=== PATIENT | female | born 2000 | race African-American/Black ===

== ENCOUNTER 2020-08-02 09:18 | Outpatient (REF) | payer MEDICAID, SELFPAY ==
[2020-08-02 12:16] LABS: SARS COV2 PCR INHOUSE NEGATIVE (Negative)
== END 2020-08-02 09:19 | disposition home or self-care (01) ==
LOC: HO.LAB 09:18
PROVIDERS: Visit Provider Internal Medicine
DX: Z20.822 Contact with and (suspected) exposure to COVID-19 (principal)
CPT/HCPCS: C9803; U0003

== ENCOUNTER 2020-12-05 11:10 | Outpatient (REF) | payer MEDICAID, SELFPAY | END 2020-12-05 11:11 | disposition home or self-care (01) | LOC: HO.LAB 11:10 | PROVIDERS: Visit Provider Internal Medicine | DX: Z20.822 Contact with and (suspected) exposure to COVID-19 (principal) | CPT/HCPCS: C9803; U0003; U0005 ==

== ENCOUNTER 2021-04-02 10:27 | Outpatient (REF) | payer MEDICAID, SELFPAY | END 2021-04-02 10:28 | disposition home or self-care (01) | LOC: HO.LAB 10:27 | PROVIDERS: Visit Provider Internal Medicine | DX: Z20.822 Contact with and (suspected) exposure to COVID-19 (principal) | CPT/HCPCS: C9803; U0003; U0005 ==

== ENCOUNTER 2021-08-06 10:00 | Outpatient (RCR) | payer MEDICAID, SELFPAY | END 2021-09-06 13:09 | disposition home or self-care (01) | LOC: HO.PTCHIC 10:00 | PROVIDERS: PCP Student in an Organized Health Care Education/Training Program; Visit Provider Family Medicine | DX: M54.50 Low back pain, unspecified (principal) | CPT/HCPCS: 97110; 97161 ==

== ENCOUNTER 2023-03-11 11:41 | Outpatient (REF) | payer MEDICAID, SELFPAY ==
[2023-03-11 14:28] LABS: MANUAL DIFF FLAG NO
[2023-03-11 14:36] LABS: Basophils Absolute Auto 0.1 X10*3/uL (0.0-0.2); Basophils Percent Auto 0.6 % (0-2); Eosinophils Absolute Auto 0.3 X10*3/uL (0.0-0.4); Hematocrit 37.4 % (37.0-47.0); Hemoglobin 11.6 g/dl (12.0-16.0); Imm Gran Abs Auto 0.07 X10*3/uL (0.00-0.03); Imm Gran Pct Auto 0.9 % (0.0-0.4); Lymphocytes Absolute Auto 2.2 X10*3/uL (1.2-4.9); Lymphocytes Percent Auto 28.6 % (20-40); Mean Corpuscular Hemoglobin 25.2 pg (27.0-33.0); Mean Corpuscular Volume 81.1 fL (80.0-98.0); Mean Platelet Volume 9.6 fL (9.4-12.3); Monocytes Absolute Auto 0.4 X10*3/uL (0.1-1.2); Monocytes Percent Auto 4.5 % (2-11); Neutrophils Absolute Auto 4.8 x10*3/uL (2.0-8.3); Neutrophils Percent Auto 61.4 % (45-73); Platelet Count 361 X10*3/uL (160-400); Red Blood Count 4.61 X10*6/uL (4.20-5.50); Red Cell Distribution Width 13.3 % (11.0-16.0); White Blood Count 7.8 X10*3/uL (4.8-10.8)
[2023-03-11 15:07] LABS: Alanine Aminotransferase 14 U/L (0-31); Albumin Level 4.3 g/dL (3.5-5.0); Alkaline Phosphatase 53 U/L (39-117); Anion Gap 10 (12-20); Aspartate Amino Transferase 21 U/L (5-31); Bilirubin Direct 0.1 mg/dL (0.0-0.5); Bilirubin Total 0.3 mg/dL (0.0-1.0); Blood Urea Nitrogen 8 mg/dL (9-16); Calcium 9.7 mg/dL (8.4-10.2); Carbon Dioxide 28 mmol/L (22-29); Chloride 105 mmol/L (96-108); Cholesterol 143 mg/dL (<200); Estimated Glomerular Filt Rate > 60; Glucose Random 72 mg/dL (60-115); HDL Cholesterol 52 mg/dL (>40); LDL Cholesterol Calculated 79 mg/dL (<100); Sodium 139 mmol/L (135-145); Triglycerides 61 mg/dL (<150)
[2023-03-11 16:15] LABS: CT PCR NOT DETECTED (Not Detect.); NG PCR NOT DETECTED (Not Detect.)
[2023-03-12 05:06] LABS: ~HepC Num1 0.07 S/CO (0.00-0.79); ~Hepatitis C Antibody Nonreactive (Nonreactive)
[2023-03-12 12:08] LABS: RPR Rapid Plasma Reagin NON-REACTIVE (NON-REACTIVE)
[2023-03-16 12:08] LABS: HIV RNA PCR Qn Copies Not Detected Copies/mL; HIV RNA PCR Qn Log Copies Not Detected Log cps/mL
== END 2023-03-11 11:42 | disposition home or self-care (01) ==
LOC: HO.CHCLDS 11:41
PROVIDERS: Visit Provider Student in an Organized Health Care Education/Training Program
DX: R03.0 Elevated blood-pressure reading, without diagnosis of hypertension (principal); Z72.51 High risk heterosexual behavior
CPT/HCPCS: 0353U; 36415; 80048; 80061; 80076; 85025; 86592; 86803; 87536; 87900

== ENCOUNTER 2023-07-07 17:51 | Outpatient (REF) | payer MEDICAID, SELFPAY | END 2023-07-07 17:52 | disposition home or self-care (01) | LOC: HO.CHCLNP 17:51 | PROVIDERS: Visit Provider Advanced Practice Midwife | DX: Z12.4 Encounter for screening for malignant neoplasm of cervix (principal) | CPT/HCPCS: 88142 ==

== ENCOUNTER 2023-08-05 11:19 | Outpatient (REF) | payer MEDICAID, SELFPAY ==
[2023-08-05 14:15] LABS: MANUAL DIFF FLAG NO
[2023-08-05 14:17] LABS: Basophils Absolute Auto 0.1 X10*3/uL (0.0-0.2); Basophils Percent Auto 0.7 % (0-2); Eosinophils Absolute Auto 0.2 X10*3/uL (0.0-0.4); Eosinophils Percent Auto 2.7 % (0-4); Hematocrit 33.7 % (37.0-47.0); Hemoglobin 10.7 g/dl (12.0-16.0); Imm Gran Abs Auto 0.01 X10*3/uL (0.00-0.03); Imm Gran Pct Auto 0.1 % (0.0-0.4); Lymphocytes Absolute Auto 2.2 X10*3/uL (1.2-4.9); Lymphocytes Percent Auto 25.7 % (20-40); Mean Corpuscular HGB Conc 31.8 g/dl (31.0-35.0); Mean Corpuscular Hemoglobin 25.4 pg (27.0-33.0); Mean Platelet Volume 9.8 fL (9.4-12.3); Monocytes Absolute Auto 0.4 X10*3/uL (0.1-1.2); Monocytes Percent Auto 5.1 % (2-11); Neutrophils Absolute Auto 5.5 x10*3/uL (2.0-8.3); Neutrophils Percent Auto 65.7 % (45-73); Platelet Count 345 X10*3/uL (160-400); Red Blood Count 4.21 X10*6/uL (4.20-5.50); Red Cell Distribution Width 14.1 % (11.0-16.0); White Blood Count 8.4 X10*3/uL (4.8-10.8)
[2023-08-05 14:49] LABS: Alanine Aminotransferase 14 U/L (0-31); Alkaline Phosphatase 57 U/L (39-117); Anion Gap 10 (12-20); Aspartate Amino Transferase 18 U/L (5-31); Bilirubin Direct 0.1 mg/dL (0.0-0.5); Bilirubin Total 0.3 mg/dL (0.0-1.0); Blood Urea Nitrogen 9 mg/dL (9-16); Calcium 8.8 mg/dL (8.4-10.2); Carbon Dioxide 25 mmol/L (22-29); Chloride 107 mmol/L (96-108); Cholesterol 137 mg/dL (<200); Estimated Glomerular Filt Rate > 60; Glucose Random 75 mg/dL (60-115); HDL Cholesterol 51 mg/dL (>40); LDL Cholesterol Calculated 75 mg/dL (<100); Potassium 3.6 mmol/L (3.3-5.1); Sodium 138 mmol/L (135-145); Total Protein 7.5 g/dL (6.5-8.0); Triglycerides 57 mg/dL (<150)
== END 2023-08-05 11:20 | disposition home or self-care (01) ==
LOC: HO.CHCLDS 11:19
PROVIDERS: Visit Provider Student in an Organized Health Care Education/Training Program
DX: D50.9 Iron deficiency anemia, unspecified (principal); R03.0 Elevated blood-pressure reading, without diagnosis of hypertension
CPT/HCPCS: 36415; 80048; 80061; 80076; 85025

== ENCOUNTER 2023-08-25 16:32 | Outpatient (REF) | payer MEDICAID, SELFPAY ==
[2023-08-26 13:26] LABS: BV Int Neg Control Negative (Negative); BV Int Pos Control Positive (Positive)
== END 2023-08-25 16:33 | disposition home or self-care (01) ==
LOC: HO.CHCLNP 16:32
PROVIDERS: Visit Provider Advanced Practice Midwife
DX: N89.8 Other specified noninflammatory disorders of vagina (principal); B37.31 Acute candidiasis of vulva and vagina
CPT/HCPCS: 87480; 87510; 87660

== ENCOUNTER 2023-11-12 09:27 | Outpatient (REF) | payer MEDICAID, SELFPAY ==
[2023-11-14 21:44] LABS: TS Negative Control Passed; TS Panel A 0; TS Panel B 0; TS Positive Control Passed; TSpotTB Negative (Negative)
== END 2023-11-12 09:28 | disposition home or self-care (01) ==
LOC: HO.CHCLDS 09:27
PROVIDERS: Visit Provider Registered Nurse
DX: Z00.00 Encounter for general adult medical examination without abnormal findings (principal)
CPT/HCPCS: 36415; 86481

== ENCOUNTER 2023-12-24 07:41 | Outpatient (REF) | payer MEDICAID, SELFPAY | END 2023-12-24 07:42 | disposition home or self-care (01) | LOC: HO.HHCLNP 07:41 | PROVIDERS: Visit Provider Registered Nurse | DX: R10.13 Epigastric pain (principal) | CPT/HCPCS: 87338 ==

== ENCOUNTER 2025-03-06 10:46 | Outpatient (REF) | payer MEDICAID, SELFPAY ==
--- OUTSIDE RECORDS SUMMARY | 2025-03-06 13:11 | XMS_ITS | Clinical Summary ---
Author Organization [facility] Address [address] [place] [address] 7[address] [place] [address] Care Team Providers Care Incident Response Coordinator Name Role Phone Emmett Corley CNP Primary Care Provider [phone] Allergies No known active allergies Medications Blood Pressure kitIndications:E levated blood pressure reading 1 Units in the morning. 1 kit 3 Active ferrous gluconate (Fergon) 324 (37.5 Fe) MG tabletIndication s:Anemia, unspecified type TAKE ONE TABLET BY MOUTH EVERY DAY WITH BREAKFAST 90 tablet 1 5 Active metFORMIN (Glucophage) 500 MG tablet Take 1 tablet (500 mg) by mouth at bedtime. 90 tablet 3 5 02/02/20 26 Active Active Problems Problem Noted Date Diagnosed Date Chronic epigastric pain 01/04/2024 Assessment & Plan (01/04/2024 11:21 AM EDT): Differential includes: GERD, H pylori infection, gastric ulcer, gastritis, pancreatitis, hormonal (given r/t menses), other - No acute abdomen on exam - H Pylori testing neg in December 2023 - Mild response to famotidine Plan: - Stop famotidine. Start pantoprazole. Reviewed med use and SE - Abd US - Referral to [facility] Iron deficiency anemia 03/11/2023 Bilateral headache 06/03/2022 Assessment & Plan (06/03/2022 5:11 PM EST): Of patients symptoms she is most concern of worsening headache for the last 2 months, reports different from previous headaches and concern of malignancy. Reports no improvement with conservative therapy and that her symptoms are worsening, will send imaging and labs. Will f/u results and recommended f/u with PCP. If no improvement or non diagnostic testing we could always refer to neurology. Elevated blood pressure reading 06/03/2022 Assessment & Plan (01/04/2024 11:17 AM EDT): - BP elevated in office, although well controlled per home readings - Consider diagnosis of white coat hypertension - encouraged to cont recording home BP values and follow up if elevated Assessment & Plan (06/03/2022 5:11 PM EST): - If SBP < 130/DBP <80 mmHg in more than 75% of home self-monitoring, continue current medication regimen and make f/u with PCP in 3 month - If SBP >130-165/DBP >80-115 mmHg , make appt in [facility] to consider starting med (amlodipine 5 mg) and f/u with PCP in 1 month - If SBP > 165/ DBP> 115 mmHg, consult with covering provider - If SBP <90/DBP <50 mmHg, consult with covering provider. Resolved Problems Problem Noted Date Diagnosed Date Resolved Date A vague feeling of discomfort 06/03/2022 07/30/2022 Assessment & Plan (06/03/2022 5:10 PM EST): Patient started crying when I came in the room, stating she has problems concentrating and that she has a headache and dizziness, and not specific vague compliant. PHQ-9 done, she would benefit of behavioral involvement. Did recommend f/u with PCP. Did send labs. Encounters Date Type Department Care Team Description 03/06/2025 Telephone [facility] [address] [place] [phone] Emmett Corley CNP Lab Orders 02/01/2025 10:15 AM EDT Office Visit [facility] [address] [place] [address] Tamica Boykin MD PCOS (polycystic ovarian syndrome) (Primary Dx); Elevated blood pressure reading; Iron deficiency anemia, unspecified iron deficiency anemia type 02/01/2025 Travel 01/25/2025 Patient Outreach [facility] [address] [place] [address] Tamica Boykin MD Pre-visit Planning (SDOH screening negative and Tobacco screening negative) 12/07/2024 Telephone [facility] [address] [place] [address] Phyllis DanielsoneJATIN 12/06/2024 Telephone [facility] [address] [place] [address] Tamica Boykin MD from Last 3 Months Immunizations Immunization Administration Dates Next Due DTaP 06/24/2005, 2,02/12/2001,12/11,2000 HPV 9-Valent 01/16/2015 HPV, Quadrivalent 01/13/2014,12/23/2012 Hep A, Adult 12/09/2018 Hep A, ped/adol, 2 dose 04/05/2018 Hep B, Adolescent or Pediatric 0,01/10/2019,12/13/2018,05/17,2000,2000 Hib (HbOC) 11/22/2001, 1,2000,10/16 INFLUENZA INJECTABLE QUADRIV ALANT CCIIV4 MDCK Multi-dose vial 02/11/2019 IPV 06/24/2005, 2,2000,10/16 Influenza Injectable Quadriv alant Preservative Free IIV4 MDCK 03/06/2021 Influenza injectable quadriv alent preservative free 02/25/2023,03/03/2022,05/09/2019,03/02 MMR 06/27/2004,11/22/2001 Meningococcal ACWY, unspecified 01/27/2017 Meningococcal MCV4P ACYW-135 01/27/2017,12/16/19 13 Moderna Covid-19 Vaccine 12+ 01/14/2021,12/15/19 21 Pneumococcal Conjugate PCV 7 06/27/2004, 08/23/2001,02/12/2001,12/11,2000 Tdap 03/11/2023,12/15/2012 Varicella 02/21/2002,08/23/2001 Family History Medical History Relation Name Comments Breast cancer Maternal Grandmother Breast cancer Mother's Sister Aunt may thurston ve tested positive for deleterious mutation. Maria Elena reports her mother tested negative, but will confirm (07/2023) Relation Name Status Comments Maternal Grandmother Mother's Sister Social History Tobacco Use Types Packs/Day Years Used Date Smoking Tobacco: Never Passive Smoke Exposure: Never Smokeless Tobacco: Never Tobacco Cessation:Counseling Given: Not Answered Alcohol Use Standard Drinks/Week Comments Never 0 (1 standard drink = 0.6 oz pur e alcohol) Depression Answer Date Recorded Patient Health Questionnaire-9 Score 0 02/01/2025 Patient Health Questionnaire-9 Score 0 02/01/2025 Last PHQ-9: Questionnaire Data Not on file 1 Housing Stability Answer Date Recorded What is your housing situation today? I have christiano coffey 01/25/[address] you li ve. Do you have problems with any of the following? None of the above 01/25/2025 Food Insecurity Answer Date Recorded Within the past 12 months, y ou worried that your food would run out before you got money to buy more: Never True 01/25/2025 Within the past 12 months,th e food you bought just didn't last and you didn't have enough money to get more: Never True Transportation Answer Date Recorded In the past 12 months, has l ack of transportation kept you from medical appts, meetings, work or from getting things needed for daily living? No 01/25/2025 Utilities Answer Date Recorded In the past 12 months, has t he electric, gas, oil or water company threatened to shut off services in your home? No 01/25/2025 Depression Answer Date Recorded Patient Health Questionnaire-2 Score 0 02/01/2025 Internet Access Answer Date Recorded Internet Access Q1 No 02/01/2025 Internet Access Q2 I do not want or need it 05/2024 Comments No Sex and Gender Information Value Date Recorded Sex Assigned at Female 03/03/2022 10:34 AM EDT Legal Sex Female 10:34 AM EDT Gender Identity Choose not to disclose 10:34 AM EDT Sexual Orientation Choose not to disclose 2021 10:34 AM EDT Last Filed Vital Signs Vital Sign Reading Time Taken Comments Blood Pressure 140/94 02/01/2025 10:18 AM EDT Manually checked Pulse 76 02/01/2025 10:18 AM EDT Temperature 36.3 C (97.3 F) 02/01/2025 10:18 AM EDT Respiratory Rate 18 02/01/2025 10:1 8 AM EDT Oxygen Saturation 98% 02/01/2025 10: 18 AM EDT Inhaled Oxygen Concentration - - Weight 109 kg (240 lb) 02/01/2025 10:18 AM EDT Height 167.6 cm (5' 6 ) 02/01/2025 10:1 8 AM EDT Body Mass Index 38.74 02/01/2025 10:18 AM EDT Plan of Treatment Health Maintenance Due Date Last Done Comments Family Planning (PISQ) 08/15/2015 Pneumococcal Vaccine: Pediatrics (0 to 5 Years) and At-Risk Patients (6 to 49) Years (1 of 2 - PCV) 08/15/2019 06/27/2004, 08/23/2001, 02/12/2001, Additional history exists Influenza Vaccine (#1) 2025 , 03/03/2022, 03/06/2021, Additional history exists Alcohol/Substance Use Screening 02/01/2026 02/01/2025 COVID-19 Vaccine ( season) 2026 11/11/2021, 01/14/2021, 12/14/2020 Postponed from 01/02/2025 (Patient Refused) Depression Screening 02/01/2026 02/01/2025, 02/02/20 Disability Screening 02/01/2026 02/01/2025 SDOH Screening 02/01/2026 02/01/2025 Tobacco Screening 02/01/2026 02/01/2025 Pap Smear 07/06/2026 07/07/2023 Lipid Panel 08/04/2028 08/05/2023, 11/12/2022, 02/14/2021 DTaP/Tdap/Td Vaccines (8 - Td or Tdap) 03/11/2033 03/11/2023, 12/15/2012, 06/24/2005, Additional history exists Zoster Vaccines (1 of 2) 2050 RSV Patients and Patients Aged 60 years or older (1 - 1-dose 75+ series) 08/15/2075 HIB Vaccines Completed 11/22/2001, 02/01, 2000, Additional history exists IPV Vaccines Completed 06/24/2005, 02/02, 2000, Additional history exists HPV Vaccines Completed 01/16/2015, 01/02, 12/23/2012 Meningococcal Vaccine Completed 01/27/2017 , 01/27/2017, 12/15/2012 Hepatitis A Vaccines Completed 12/09/2018, 04/05/20 18 Hepatitis B Vaccines Completed 05/09/2019, 01/10/2019, 12/13/2018, Additional history exists HIV Screening Completed 02/14/2021 Hepatitis C Screening Completed 03/11/2023, 021 Meningococcal B Vaccine Aged Out No l onger eligible based on patient's age to complete this topic RSV under 20 months Aged Out No longe r eligible based on patient's age to complete this topic Rotavirus Vaccines Aged Out No longer eligible based on patient's age to complete this topic Procedures Procedure Name Priority Date/Time Associated Diagnosis Comments LIPID PANEL, STANDARD Routine 08/05/2023 11:21 AM EDT Elevated blood pressure reading PAP SMEAR Routine 07/07/2023 3:24 PM EST Cervical cancer screening HEPATITIS C AB W/REFL TO HCV RNA, QN, PCR Routine 03/11/2023 11:43 AM EST Unprotected sex HIV 1/2 ANTIGEN/ANTIBODY, FOURTH GENERATION W/RFL Routine 02/14/2021 9:32 AM EDT from Last 3 Months or Most Recently Relevant to Health Maintenance Results * Lipid Panel, Standard (08/05/2023 11:21 AM EDT) Triglycerides 57 <150 mg/dL [facility] Comment:Desirable Triglyceri de: less than 150 mg/dLBorderline High Triglyceride 150-199 mg/dLHigh Triglyceride: 200-499 mg/dLVery High Triglyceride: greater than or equal to 5OO mg/dL Cholesterol 137 <200 mg/dL [facility] Comment:Desirable Cholestero l: less than 200 mg/dLBorderline High Cholesterol: 200-239 mg/dLHigh Cholesterol: greater than 239 mg/dL LDL Cholesterol Calculated 75 <100 mg/dL [facility] Comment:Desirable LDL: less than 100 mg/dLNear Optimal/Above Optimal LDL: 110- 129 mg/dLBorderline High LDL: 130-159 mg/dLHigh LDL: 160-189 mg/dLVery High LDL: greater than or equal to 190 mg/dL HDL Cholesterol 51 >40 mg/dL [facility] Comment:Desirable HDL: great er than 40 mg/dL Note: This HDL assay may give artificially low results in patients with liver disease. Blood Venous blood specimen / Unknown 08/05/2023 11:21 AM EDT 08/05/2023 2:10 PM EDT us Tamica Boykin MD LAB BLOOD ORDERABLES Final Resul t [facility] [address] [place] [phone] * Pap Smear (07/07/2023 3:24 PM EST) Swab Cervix uteri structure / Unknown 07/07/2023 3:24 PM EST 07/08/2023 12:30 PM EST Narrative [facility] - 07/20/2023 7:11 AM EDT ----- ------- Name: Maria Elena Harris Age/Sex: 22/F : 2000 Unit#: [id number] Attend Dr: RACHEL PEDRO Eldon Re07/07/23 Status: DEP REF Location: .[facility] Disch: ----- ------- SPEC : [id number] RECD: 07/08/23-1230 STATUS: ANABELLE BRITO NUM: [id number] DOMONIQUE: 07/07/23-[address]: RACHEL PEDRO CNM ENTERED: 07/08/23-1299 SP TYPE: Pap Smr OTHR DR: ORDERED: Pap Smear Interpretation Satisfactory for evaluation. Mild inflammation. Negative for intraepithelial lesion or malignancy. Clinical Information LMP: Unknown date Previous PAP test: Unknown date/findings Material Received ThinPrep-Vaginal/Cervical ----- ------- Signed (signature on file) ANDRE Russo (ASCP) 07/20/23 0711 ----- ------- END OF REPORT Rachel Pedro CNM LAB CYTOLOGY ORDERABLES F inal Result [facility] [address] [place] [phone] * Hepatitis C Antibody with Reflex to HCV, RNA, Quantitative, Real-Time PCR (03/11/2023 11:43 AM EST) Hepatitis C Antibody Nonreactive Nonreactive [facility] Comment:Antibodies to HCV no t detected; does not exclude early acuteHCV infection. Blood Venous blood specimen / Unknown 03/11/2023 11:43 AM EST 03/11/2023 2:26 PM EST us Tamica Boykin MD LAB BLOOD ORDERABLES Final Resul t Performing Organization Address [facility]/ZIP Co de Phone Number [facility] [address] [place] [phone] * HIV 1/2 ANTIGEN/ANTIBODY,FOURTH GENERATION W/RFL (02/14/2021 9:32 AM EDT) HIV-1/2 ANTIGEN AND ANTIBODIES, 4TH GENERATION W/ REFLEX NON-REACT ROC NON-REACT ROC [facility] Comment: HIV-1 antigen and HIV-1/HIV-2 antibodies were not detected. There is no laboratory evidence of HIV infection. PLEASE NOTE: This information has been disclosed to you from records whose confidentiality may be protected by state law. If your state requires such protection, then the state law prohibits you from making any further disclosure of the information without the specific written consent of the person to whom it pertains, or as otherwise permitted by law. A general authorization for the release of medical or other information is NOT sufficient for this purpose. For additional information please refer to http://education.[employer].ImageSpike/faq/JIY963 (This link is being provided for informational/ educational purposes only.) The performance of this assay has not been clinically validated in patients less than 2 years old. 02/14/2021 9:32 AM EDT us Maria Elena Swift MD LAB BLOOD ORDERABLES Final Re sult [facility] [address] [place] [address], [place] from Last 3 Months or Most Recently Relevant to Health Maintenance Insurance [facility] C3 Care Teams Incident Response Coordinator Relationship Specialty Start Date End Date Emmett Corley CNP [address] [place] [phone] PCP - General Family Medicine 03/01/25
--- OUTSIDE RECORDS SUMMARY | 2025-03-06 13:11 | XMS_ITS | Encounter Summary ---
Author Organization [employer] Address [address] [place] [address] 7 [place] [address] Care Team Providers Care Apartment Rental Clerk Name Role Phone Tamica Boykin MD Primary Care Provider [phone] Emmett Corley CNP Primary Care Provider [phone] Reason for Visit * Reason Onset Date Comments Call Back Request 11/12/2023 Encounter Details Date Type Department Care Team ([facility] st Contact Info) Description 11/12/2023 Telephone [facility] [address] [place] [address] Tamica Boykin MD [address] [place], [place] [phone] Call Back Request Social History Tobacco Use Types Packs/Day Years Used Date Smoking Tobacco: Never Passive Smoke Exposure: Never Smokeless Tobacco: Never Alcohol Use Standard Drinks/Week Comments Never 0 (1 standard drink = 0.6 oz pur e alcohol) Depression Answer Date Recorded Patient Health Questionnaire-9 Score 5 03/11/2023 Patient Health Questionnaire-9 Score 5 03/11/2023 Last PHQ-9: Questionnaire Data Not on file 1 05/11/2022 Housing Stability Answer Date Recorded What is your housing situation today? I have christiano erlinda 07/27/[address] you li ve. Do you have problems with any of the following? None of the above 07/27/2023 Food Insecurity Answer Date Recorded Within the past 12 months, y ou worried that your food would run out before you got money to buy more: Never True 03/06/2023 Within the past 12 months,th e food you bought just didn't last and you didn't have enough money to get more: Never True 07/2022 Transportation Answer Date Recorded In the past 12 months, has l ack of transportation kept you from medical appts, meetings, work or from getting things needed for daily living? Yes, it has kept me from medical appointments or getting medications. 07/27/2023 Utilities Answer Date Recorded In the past 12 months, has t he electric, gas, oil or water company threatened to shut off services in your home? No 03/06/2023 Depression Answer Date Recorded Patient Health Questionnaire-2 Score 0 03/11/2023 Comments No Sex and Gender Information Value Date Recorded Sex Assigned at Female 03/03/2022 10:34 AM EDT Legal Sex Female 10:34 AM EDT Gender Identity Choose not to disclose 10:34 AM EDT Sexual Orientation Choose not to disclose 2021 10:34 AM EDT documented as of this encounter Miscellaneous Notes * Telephone Encounter - Wing Ck RN - 11/12/2023 4:39 PM EDT Tc to pt to inform of lab order being changed to stool test. Pt verbalized understanding and agreement with plan. * Telephone Encounter - KEL Santana - 11/12/2023 4:21 PM EDT No problem, order changed to stool test. Please call to let patient know, thank you! * Telephone Encounter - Wing Ck RN - 11/12/2023 1:33 PM EDT Please advise about H. Pylroi test ordered on 11/05, spoke to [facility] who says they only do H. Pyloristool tests. They do not do the breath test here. [facility] recommended lab be reordered as H. Pyloristool so it can be done here at [facility]. * Telephone Encounter - Josie Felix - 11/12/2023 9:36 AM EDT Tc from pt requesting a call back, pt stated went to [facility] lab and they told her we don't do the Helicobacter Pylori test. Pt will like to know what's the next step. documented in this encounter Plan of Treatment Not on file documented as of this encounter Procedures Procedure Name Priority Date/Time Associated Diagnosis Comments HELICOBACTER PYLORI AG, EIA, STOOL Routine 12/24/2023 6:43 AM EDT Epigastric pain documented in this encounter Results * Helicobacter pylori??Antigen, EIA, Stool (12/24/2023 6:43 AM EDT) H pylori Ag Stool SEE NOTE [facility] Comment:HELICOBACTER PYLORI AG, EIA, STOOL Micro Number: [id number] Test Status: Final Specimen Source: Stool Specimen Quality: Adequate H.pylori Ag: Not Detected Antimicrobials, proton pump inhibitors, and bismuth preparations inhibit H. pylori and ingestion up to two weeks prior to testing may cause false negative results. If clinically indicated the test should be repeated on a new specimen obtained two weeks after discontinuing treatment. Reference Range: Not DetectedTHIS TEST WAS PERFORMED AT:[facility] [place] [phone] EGAN MD Stool Rectal contents / Unknown 12/24/2023 6:43 AM EDT 12/24/2023 7:42 AM EDT us Sydni [facility] BODY FLUIDS AND STOOLS ORD ERABLES Final Result [facility] [address] [place], [place] [phone] documented in this encounter Visit Diagnoses Diagnosis Epigastric pain- Primary Abdominal pain, epigastric documented in this encounter Additional Health Concerns Assessment Noted Time PHQ-9 Depression Total Score: 5 03/11/20 23 11:30 AM EST documented as of this encounter Care Teams Apartment Rental Clerk Relationship Specialty Start Date End Date Tamica Boykin MD [address] [place] [phone] PCP - General Family Medicine 06/29/20 02/28/25 Emmett Corley CNP [address] [place] [phone] PCP - General Family Medicine 03/01/25 documented as of this encounter
--- OUTSIDE RECORDS SUMMARY | 2025-03-06 13:11 | XMS_ITS | Encounter Summary ---
Author Organization [employer] Address [address] [facility] [address] [place] [address] Care Team Providers Care Men'S Furnishings Salesperson Name Role Phone Emmett Corley CNP Primary Care Provider [phone] Reason for Visit * Reason Onset Date Comments Lab Orders 03/06/2025 Encounter Details Date Type Department Care Team ([facility] st Contact Info) Description 03/06/2025 Telephone [facility] [address] [place] [address] Emmett Corley CNP [address] [place], [place] [phone] Lab Orders Social History Tobacco Use Types Packs/Day Years [...] is your housing situation today? I have christianoparish coffey 01/25/[address] you [...] encounter Miscellaneous Notes * Telephone Encounter - Georgie George RN - 03/06/2025 10:16 AM EST TC to pt. Pt confirms reporting 2 positive tests at home. Advised will order hcg blood test and advised pt to complete test and advised of locations and time for blood testing. Pt verbalized understanding and agreement with plan. * Telephone Encounter - Belinda Ro - 03/06/2025 9:07 AM EST TC from pt requesting Lab due to have 2 test positive at home. PCP EDA Corley documented in this encounter Plan of Treatment Scheduled Orders Name Type Priority Associated Diagnoses Orde r Schedule hCG, Total, Quantitative Lab Routine Unprotected sex Expected: 03/06/2025 (Approximate), Expires: 03/06/2026 documented as of this encounter Visit Diagnoses Diagnosis Unprotected sex Problems related to high-risk sexual behavior documented in this encounter Additional Health Concerns Assessment Noted Time PHQ-9 Depression Total Score: 0 02/02/20 25 10:20 AM EDT documented as of this encounter Care Teams Men'S Furnishings Salesperson Relationship Specialty Start Date End Date Emmett Corley CNP [address] [place] [phone] PCP - General Family Medicine 03/01/25 documented as of this encounter
== END 2025-03-06 10:47 | disposition home or self-care (01) ==
LOC: HO.CHCLDS 10:46
DX: Z72.51 High risk heterosexual behavior (principal)
CPT/HCPCS: 36415; 84702

== ENCOUNTER 2025-03-17 20:56 | Emergency (ER) | payer MEDICAID, SELFPAY ==
[2025-03-17 21:10] VITALS: BP 153/94; PULSE 118; RESP 20; TEMP 37.1; O2SAT 99; BMI 37.1
--- NOTE | 2025-03-17 21:16 | ECG_ITS ---
Test Reason : TACHYCARDIA Blood Pressure : */* mmHG Vent. Rate : 114 BPM Atrial Rate : 114 BPM P-R Int : 194 ms QRS Dur : 86 ms QT Int : 312 ms P-R-T Axes : 51 10 12 degrees QTcB Int : 430 ms Sinus tachycardia with Premature atrial complexes Low voltage QRS Borderline ECG No previous ECGs available Referred By: Generic ED Physician Electronically Signed By: CARRIE DAVIS MD
[2025-03-17 21:22] VITALS: BP 153/94; PULSE 118; RESP 20; TEMP 37.1; O2SAT 99
[2025-03-17 21:46] LABS: MANUAL DIFF FLAG NO
[2025-03-17 21:47] LABS: Hematocrit 34.6 % (37.0-47.0); Hemoglobin 11.1 g/dl (12.0-16.0); Imm Gran Abs Auto 0.04 X10*3/uL (0.00-0.03); Imm Gran Pct Auto 0.3 % (0.0-0.4); Lymphocytes Absolute Auto 2.1 X10*3/uL (1.2-4.9); Mean Corpuscular HGB Conc 32.1 g/dl (31.0-35.0); Mean Corpuscular Hemoglobin 24.9 pg (27.0-33.0); Mean Corpuscular Volume 77.6 fL (80.0-98.0); NRBC Abs Auto 0.000 X10*3/uL (0.0-0.012); NRBC Pct Auto 0.0 /100WBC (0.0-0.2); Platelet Count 299 X10*3/uL (160-400); Red Blood Count 4.46 X10*6/uL (4.20-5.50); White Blood Count 12.2 X10*3/uL (4.8-10.8)
[2025-03-17 22:10] LABS: Alanine Aminotransferase 31 U/L (0-31); Albumin Level 4.3 g/dL (3.5-5.0); Alkaline Phosphatase 60 U/L (39-117); Anion Gap 13 (12-20); Aspartate Amino Transferase 26 U/L (5-31); Blood Urea Nitrogen 9 mg/dL (9-16); Calcium 9.5 mg/dL (8.4-10.2); Carbon Dioxide 20 mmol/L (22-29); Chloride 109 mmol/L (96-108); Creatinine Clr Calc Pharmacy 170.7; Estimated Glomerular Filt Rate > 60; Potassium 3.3 mmol/L (3.3-5.1); Sodium 139 mmol/L (135-145); Total Protein 7.6 g/dL (6.5-8.0)
--- NOTE | 2025-03-17 22:49 | ED.GENADULT ---
HPI - General Adult General Chief complaint: OB Stated complaint: anxiety, 8wks check up Time Seen by Provider: 03/17/25 22:09 Source: patient Limitations: no limitations History of Present Illness ED Provider: Macie Oneil PA-C HPI narrative: 24-year-old female who is otherwise healthy, who is currently approximately 8 weeks , presents with a anxiety. Patient states she was involved in a verbal altercation with family at home, she developed abdominal cramping. The patient states she panicked, she has had miscarriages in the past. She denies vaginal bleeding. Patient has started taking vitamins, she has her pending 1st appointment with the her direct service professional. Related Data Allergies Allergy/AdvReac Type Severity Reaction Status Date / Time No Known Allergies (No Known Allergy Verified 03/17/25 21:16 Allergies*) Review of Systems Review of Systems: Yes all other systems are reviewed and are negative Constitutional: Constitutional: Denies fatigue and Denies fever(s) Cardiovascular: Cardiovascular: Denies chest pain and Denies dyspnea Respiratory: Respiratory: Denies dyspnea Gastrointestinal: Gastrointestinal: Denies nausea and Denies vomiting Genitourinary: Genitourinary: Reports pelvic pain and Denies vaginal discharge Psychiatric: Psychiatric: Reports anxiety Endocrine: Endocrine: Denies fatigue PMFSH Past Medical History Attestation statement: The following information was validated with the patient. Social History Social History Smoked in Last 30 Days: No Advance Directives: No Advance Directives Information Provided: No Physical Exam ED Vital Signs: Vital Signs - 24 hr 03/17/25 21:10 03/17/25 21:22 Temperature 98.8 F 98.8 F Pulse Rate 118 H 118 H Respiratory Rate 20 20 Blood Pressure 153/94 H 153/94 H Pulse Oximetry 99 99 Oxygen Delivery Method Room Air Room Air BMI result Body Mass Index 37.1 Const Other: Alert well-appearing Orientation/consciousness: patient oriented x3 Resp Effort & Inspection: normal respiratory effort Cardio Other: Normal peripheral perfusion GI Other: Soft nontender nondistended Other: Deferred no indication Skin Other: Warm dry no rash Neuro General: patient oriented x3, gait normal, no focal motor deficits and CN's II-XI intact bilaterally Psych Other: Cooperative Procedures Ultrasound ED POC Ultrasound: Bedside obstetric Verified IUP, can visualize cardiac flicker Medical Decision Making Medical Decision Making MDM Narrative: 24-year-old female who is otherwise healthy, who is currently approximately 8 weeks , presents with a anxiety. Patient states she was involved in a verbal altercation with family at home, she developed abdominal cramping. The patient states she panicked, she has had miscarriages in the past. She denies vaginal bleeding. Patient has started taking vitamins, she has her pending 1st appointment with the her direct service professional. No chronic issues History: Per patient I have considered the following differential diagnoses: Anxiety, panic attack, symptoms of early , threatened , ectopic, Plan: The patient has not had an ultrasound yet, she is not having any vaginal bleeding which is reassuring, she is also hemodynamically stable. Ectopic less likely, I did performed bedside ultrasound, I see IUP with a cardiac flicker. She does not need a formal transvaginal ultrasound at this time. She can continue to follow up with her direct service professional. Screening labs were obtained from triage, we have a quant as well that has appropriate. The patient sees a therapist, she does not take medication for anxiety, she is reassured, in his eager for discharge. I have independently reviewed the following tests: Labs: Slight leukocytosis, not anemic, no electrolyte abnormality, beta hCG 95530 Differential Diagnosis Differential Diagnoses: The differential diagnosis associated with the presentation includes See [facility] Admission/Observation Consideration of admission/observation: Escalation of care including admission/observation considered Not applicable Lab Data [facility] Lab Attestation statement: I reviewed the patient's lab results. 03/17/25 21:42 03/17/25 21:42 Labs: Lab Results 03/17/25 Range/Units 21:42 WBC 12.2 H (4.8-10.8) X10*3/uL RBC 4.46 (4.20-5.50) X10*6/uL Hgb 11.1 L (12.0-16.0) g/dl Hct 34.6 L (37.0-47.0) % MCV 77.6 L (80.0-98.0) fL MCH 24.9 L (27.0-33.0) pg MCHC 32.1 (31.0-35.0) g/dl RDW 14.7 (11.0-16.0) % Plt Count 299 (160-400) X10*3/uL MPV 9.0 L (9.4-12.3) fL Immature Gran % (Auto) 0.3 (0.0-0.4) % Neut % (Auto) 73.6 H (45-73) % Lymph % (Auto) 17.5 L (20-40) % [place] % (Auto) 5.6 (2-11) % Eos % (Auto) 2.5 (0-4) % Baso % (Auto) 0.5 (0-2) % Lymph # (Auto) 2.1 (1.2-4.9) X10*3/uL [place] # (Auto) 0.7 (0.1-1.2) X10*3/uL Eos # (Auto) 0.3 (0.0-0.4) X10*3/uL Baso # (Auto) 0.1 (0.0-0.2) X10*3/uL Abs Immat Gran (auto) 0.04 H (0.00-0.03) X10*3/uL Absolute Neuts (auto) 9.0 H (2.0-8.3) x10*3/uL Absolute Nucleated RBC 0.000 (0.0-0.012) X10*3/uL Nucleated RBC % (auto) 0.0 (0.0-0.2) /100WBC Sodium 139 (135-145) mmol/L Potassium 3.3 (3.3-5.1) mmol/L Chloride 109 H (96-108) mmol/L Carbon Dioxide 20 L (22-29) mmol/L Anion Gap 13 (12-20) BUN 9 (9-16) mg/dL Creatinine 0.62 (0.5-1.4) mg/dL Estim Creat Clear Calc 170.7 Estimated GFR > 60 Random Glucose 132 H (60-115) mg/dL Calcium 9.5 D (8.4-10.2) mg/dL Total Bilirubin 0.2 (0.0-1.0) mg/dL AST 26 (5-31) U/L ALT 31 (0-31) U/L Alkaline Phosphatase 60 (39-117) U/L Total Protein 7.6 (6.5-8.0) g/dL Albumin 4.3 (3.5-5.0) g/dL Beta HCG, Quant 55843 mIU/mL Discharge Plan Discharge Clinical Impression: and not yet delivered in first trimester, Anxiety Patient Disposition: Home, Self-Care Instructions: Anxiety (ED), at 7 to 10 Weeks (ED) Additional Instructions: All of your screening labs were normal. The bedside informal ultrasound revealed a live . Continue to follow up with your direct service professional. Print Language: Upper Sorbian
[2025-03-17 22:50] LABS: UPreg QC Valid YES
[2025-03-17 23:03] LABS: Appearance Urine Cloudy; Glucose Urine UA Negative (Negative); PH 6.0 (5.0-9.0); Specific Gravity - Urine 1.015 (1.005-1.025); UMIC TRIGGER UACC YES
[2025-03-17 23:05] VITALS: BP 146/89; PULSE 107; RESP 18; TEMP 36.4; O2SAT 98
[2025-03-17 23:13] LABS: UACC Culture Trigger YES
== END 2025-03-17 23:14 | disposition home or self-care (01) ==
PROVIDERS: Physician Assistant Medical; Emergency Provider Emergency Medicine; PCP Student in an Organized Health Care Education/Training Program
DX: F41.9 Anxiety disorder, unspecified (principal); O26.891 Other specified pregnancy related conditions, first trimester
CPT/HCPCS: 36415; 80053; 81001; 81003; 81025; 84702; 85025; 87086; 93005; 99283; 99284

== ENCOUNTER → 2025-03-17 21:16 | Outpatient (BNV) | payer MEDICAID, SELFPAY | PROVIDERS: Emergency Provider Emergency Medicine; PCP Student in an Organized Health Care Education/Training Program; Visit Provider Internal Medicine Cardiovascular Disease | DX: I49.1 Atrial premature depolarization (principal); R00.0 Tachycardia, unspecified | CPT/HCPCS: 93010 ==

== ENCOUNTER 2025-04-11 22:22 | Emergency (ER) | payer MEDICAID, SELFPAY ==
--- NOTE | 2025-04-11 22:33 | ECG_ITS ---
Test Reason : CHEST PAIN/ HEART PALPTATION Blood Pressure : */* mmHG Vent. Rate : 92 BPM Atrial Rate : 92 BPM P-R Int : 170 ms QRS Dur : 92 ms QT Int : 342 ms P-R-T Axes : 46 6 34 degrees QTcB Int : 422 ms Normal sinus rhythm Possible Inferior infarct , age undetermined Abnormal ECG When compared with ECG of 17-Mar-2025 21:21, Premature atrial complexes are no longer Present Borderline criteria for Inferior infarct are now Present Referred By: Generic ED Physician Electronically Signed By: CARRIE DAVIS MD
[2025-04-11 22:58] VITALS: BP 146/82; PULSE 97; RESP 16; TEMP 36.8; O2SAT 99; BMI 40.5
--- NOTE | 2025-04-11 23:04 | ED_ITS ---
HPI - Anxiety General Chief Complaint: Anxiety Stated Complaint: chest pain panic attack Time Seen by Provider: 04/12/25 02:10 Source: patient Mode of arrival: ambulatory Limitations: no limitations History of Present Illness ED Provider: Rosalino MARIE HPI narrative: Patient is a 24 year old female currently 11 weeks presenting today reporting a panic attack that started at 4pm today. She reports palpitations and chest pain. Denies SI/HI. Pt states she had a miscarriage in July and states the thought of that happening again may have contribute to her panic attack today. Patient denies vaginal bleeding, cramping, any other pain, SOB, n/v/d, fevers. Related Data Allergies Allergy/AdvReac Type Severity Reaction Status Date / Time No Known Allergies (No Known Allergy Verified 04/11/25 23:00 Allergies*) Review of Systems Review of Systems: Yes all other systems are reviewed and are negative PMFSH Social History Social History Unable to assess alcohol history related to: Unknown Alcohol intake: never Smoked in Last 30 Days: No Use of substances other than those prescribed or required for medical reasons: No Advance Directives: No Advance Directives Information Provided: Yes Patient : No Physical Exam Exam: Exam: CONSTITUTIONAL: The patient appears non-toxic, well nourished and in no acute distress. Vital signs as documented. HEAD: Atraumatic, normocephalic. EYES: EOMs grossly intact, pupils equal, conjunctiva clear, no exudate. ENT: Nares patent, no discharge. Airway patent, no audible stridor, visible mucosa is pink and moist without noted lesions. NECK: trachea is midline, no obvious masses or gross abnormalities. CHEST: Symmetric movement, normal appearance. LUNGS: Non-labored work of breathing. CARDIAC: No evidence of hypoperfusion. ABDOMEN: Nondistended, no obvious injury. : Deferred. EXTREMITIES: Moves all extremities spontaneously without reported pain. No obvious injury or deformity noted. NEURO: Alert and oriented x3, CN II-XII appear grossly intact. Cerebellar Functioning grossly intact. Speech clear and appropriate. SKIN: Warm, dry, color appropriate. No rashes or lesions noted. Vital Signs: Vital Signs: Last Vital Signs Temp 97.0 F 04/12/25 03:46 Pulse 92 04/12/25 03:46 Resp 15 04/12/25 03:46 BP 130/79 04/12/25 03:46 Pulse Ox 100 04/12/25 03:46 O2 Del Method Room Air 04/12/25 03:46 BMI result Body Mass Index 40.5 CONSTITUTIONAL: The patient appears non-toxic, well nourished and in no acute distress. Vital signs as documented. HEAD: Atraumatic, normocephalic. EYES: EOMs grossly intact, pupils equal, conjunctiva clear, no exudate. ENT: Nares patent, no discharge. Airway patent, no audible stridor, visible mucosa is pink and moist without noted lesions. NECK: trachea is midline, no obvious masses or gross abnormalities. CHEST: Symmetric movement, normal appearance. LUNGS: Non-labored work of breathing. CARDIAC: No evidence of hypoperfusion. ABDOMEN: Nondistended, no obvious injury. : Deferred. EXTREMITIES: Moves all extremities spontaneously without reported pain. No obvious injury or deformity noted. NEURO: Alert and oriented x3, CN II-XII appear grossly intact. Cerebellar Functioning grossly intact. Speech clear and appropriate. SKIN: Warm, dry, color appropriate. No rashes or lesions noted. Course Course Course Narrative: 11:04 PM 04/11/2025 (Moreno MARIE): Rapid medical examination performed, full details of HPI, exam, MDM, care plan and disposition deferred to primary provider. Patient is a 24-year-old female presenting to the ED for evaluation after a panic attack earlier today followed by tachycardia and chest pain. Patient denies SI/HI, denies any active chest pain. The patient reports she is currently 11 weeks , denies any cramping or vaginal bleeding, no passage of fluid. EKG obtained in triage is nonischemic. Returned to waiting room. Advised to notify staff if worsening symptoms or if considering leaving prior to treatment complete. Medical Decision Making Medical Decision Making MDM Narrative: 3:26 AM 04/12/2025 (Moreno MARIE): Patient is a 24 year old female currently 11 weeks presenting today reporting a panic attack that started at 4pm today. She reports palpitations and chest pain. Denies SI/HI. Pt states she had a miscarriage in July and states the thought of that happening again may have contribute to her panic attack today. Patient denies vaginal bleeding, cramping, any other pain, SOB, n/v/d, fevers. On exam, patient is well appearing in NAD, states that her anxiety has resolved and patient has no acute somatic complaint. EKG is nonischemic. Patient reports she has close follow up with a outpatient therapist and plans to see them this week. The patient reports she feels symptoms have completely resolved and she is requesting discharge home. Patient will be discharged per her request, patient's mother was present in the ED and agreed with care plan as stated. Admission/Observation Consideration of admission/observation: Escalation of care including admission/observation considered Independent Interpretation I performed an independent interpretation of an: EKG (EKG shows sinus rhythm with a rate of 92, no evidence of acute ischemia, no ST elevation, no ectopy. QTC 422. Compared to previous on 03/17/2025 there are no significant morphology changes. ) External Record Review External record reviewed: Outpatient record and Prior outpatient labs Discharge Plan Discharge Clinical Impression: Acute anxiety Patient Disposition: Home, Self-Care Instructions: Anxiety (ED), Panic Attack (ED) Additional Instructions: Thank you for choosing [facility]'s Emergency Department for your care today. Thankfully your EKG, exam, and vital signs today are reassuring. At this time there is no indication for admission to the hospital or continued ED observation, and it is safe to discharge you home. Seeing as your anxiety has improved, vital signs have improved, and you are not experiencing any additional panic symptoms, we recommend you follow up with your therapist for additional management of your anxiety. Please also follow up with your primary care physician for re-evaluation, additional management of your symptoms, and continued preventative care. If you do not have a primary care physician, please call the [facility] at [phone] to establish a new primary care physician. While waiting to establish your new primary care physician, you can call our [facility]in [facility] at [phone] for non-emergency needs. Please return to the emergency department if you develop any thoughts of harming yourself or others, experienced vaginal bleeding, severe abdominal pain, uncontrollable anxiety, a severe or sudden change in your symptoms, a fever over 100.4 that does not improve with Tylenol or Ibuprofen, recurrent vomiting, or any other new or worsening symptoms or concerns. Referrals: Emmett Corley NP [Primary Care Provider, Primary Care] Clinical Impression: Acute anxiety Stand Alone Forms: Work/School Release Interventions: ED Discharge Assessment Last Done: 04/12/25 03:46 Discharge Date/Time: 04/12/25 03:46 Print Language: Citizen [place]
[2025-04-11 23:51] VITALS: BP 130/79; PULSE 92; RESP 15; O2SAT 100
--- OUTSIDE RECORDS SUMMARY | 2025-04-12 00:38 | XMS_ITS | Encounter Summary ---
Author Organization [employer] Address [address] [place] [address] Care Team Providers Care Window Repairer Name Role Phone Tamica Boykin MD Primary Care Provider Emmett Corley CNP Primary Care Provider [phone] Reason for Visit * Reason Onset Date Comments Call Back Request 11/12/2023 Encounter Details Date Type Department Care Team ([facility] st Contact Info) Description 11/12/2023 Telephone [facility] [address] [place] [address] Tamica Boykin MD [address] [place], [place] [id number] Call Back Request Social History Tobacco Use [...] Pylroi test ordered on 11/05, spoke to [facility] lab who says they only do H. Pyloristool tests. They do not do the breath test here. [facility] lab recommended lab be reordered as H. Pyloristool so it can be done here at [facility]. * Telephone Encounter - Josie Felix - 11/12/2023 9:36 AM EDT Tc from pt requesting a call back, pt stated went to [facility] lab and they told her we don't [...] EDT) H pylori Ag Stool SEE NOTE [facility] Comment:HELICOBACTER PYLORI AG, EIA, STOOL Micro Number: [id number] Test Status: Final Specimen Source: Stool Specimen Quality: Adequate H.pylori Ag: Not Detected Antimicrobials, proton pump inhibitors, and bismuth preparations inhibit H. pylori and ingestion up to two weeks prior to testing may cause false negative results. If clinically indicated the test should be repeated on a new specimen obtained two weeks after discontinuing treatment. Reference Range: Not DetectedTHIS TEST WAS PERFORMED AT:[facility] [place] [id number] EGAN MD Stool Rectal contents / Unknown 12/24/2023 6:43 AM EDT 12/24/2023 7:42 AM EDT us [facility] BODY FLUIDS AND STOOLS ORD ERABLES Final Result [facility] [address], [place] [id number] [phone] documented in this encounter Visit Diagnoses Diagnosis Epigastric pain- Primary Abdominal pain, epigastric documented in this encounter Additional Health Concerns Assessment Noted Time PHQ-9 Depression Total Score: 5 03/11/20 23 11:30 AM EST documented as of this encounter Care Teams Window Repairer Relationship Specialty Start Date End Date Tamica Boykin MD [address] [place] [id number] PCP - General Family Medicine 06/29/20 02/28/25 Emmett Corley CNP [address] [place] [id number] PCP - General Family Medicine 03/01/25 documented as of this encounter
--- OUTSIDE RECORDS SUMMARY | 2025-04-12 00:38 | XMS_ITS | Clinical Summary ---
Author Organization [employer] Address [address] [place] [address] [address] [place] [address] Care Team Providers Care Actuarial Mathematician Name Role Phone Emmett Corley CNP Primary Care Provider [phone] Allergies No known active allergies Medications Blood [...] SE - Abd US - Referral to [facility] GI Iron deficiency anemia 03/11/2023 Bilateral headache [...] >130-165/DBP >80-115 mmHg , make appt in [facility] to consider starting med (amlodipine 5 mg) [...] Encounters Date Type Department Care Team Description 03/17/2025 Orders Only GENERIC EXTERNAL DATA DEPARTMENT Provider, Generic External Data 03/07/2025 Results Follow-Up [facility] [address] [place] [address] Emmett Corley CNP hCG, Total, Quantitative 03/06/2025 Telephone [facility] [address] [place], [place] [phone] Emmett Corley CNP Lab Orders 02/01/2025 10:15 AM EDT Office Visit [facility] [address] [place] [address] Tamica Boykin MD PCOS (polycystic ovarian syndrome) (Primary Dx); Elevated blood pressure reading; Iron deficiency anemia, unspecified iron deficiency anemia type 02/01/2025 Travel 01/25/2025 Patient Outreach [facility] [address] [place] [address] Tamica Boykin MD Pre-visit Planning (SDOH screening negative and Tobacco screening negative) from Last 3 Months Immunizations Immunization Administration [...] Smear 07/06/2026 07/07/2023 Lipid Panel 08/04/2028 08/05/2023, 1112/2022, 02/14/2021 DTaP/Tdap/Td Vaccines (8 - Td or [...] Procedure Name Priority Date/Time Associated Diagnosis Comments CULTURE, URINE, ROUTINE Routine 03/17/2025 11:18 PM EST URINALYSIS, COMPLETE, WITH REFLEX TO CULTURE Routine 03/17/2025 10:38 PM EST HCG, QL, URINE Routine 03/17/2025 10:38 PM EST HCG, TOTAL, QN Routine 03/06/2025 10:49 AM EST Unprotected sex LIPID PANEL, STANDARD Routine 08/05/2023 11:21 AM EDT Elevated blood pressure reading PAP SMEAR Routine 07/07/2023 3:24 PM EST Cervical cancer screening HEPATITIS C AB W/REFL TO HCV RNA, QN, PCR Routine 03/11/2023 11:43 AM EST Unprotected sex HIV 1/2 ANTIGEN/ANTIBODY, FOURTH GENERATION W/RFL Routine 02/14/2021 9:32 AM EDT from Last 3 Months or Most Recently Relevant to Health Maintenance Results * Culture, Urine, Routine (03/17/2025 11:18 PM EST) Urine Urine specimen obtained by clean catch procedure / Unknown 03/17/2025 11:18 PM EST 03/17/2025 11:18 PM EST Comment:UACC Narrative [facility] - 03/19/2025 12:53 PM EST Urine Culture Report Result Urine Culture > 100,000 cfu/ml Urine Culture Mixed bacterial pattie characteristic of Urine Culture urogenital contamination. Specimen Source: Urine clean catch us Generic External Data Provider LAB MICROBIOLOGY - GENERAL ORDERABLES Final Result Performing Organization Address City/State/[facility] Co de Phone Number [facility] [address] [place] [address] [phone] * (ABNORMAL) Urinalysis, Complete, with Reflex to Culture (03/17/2025 10:38 PM EST) Color Urine Yellow [facility] Appearance Urine Cloudy [facility] PH 6.0 5.0 - 9.0 [facility] Glucose Urine UA Negative Negative mg/dL [facility] Urine Blood Negative Negative [facility] Specific [place] - Urine 1.015 1.005 - 1.025 [facility] Urine Protein 30 (1+)(A) Neg-Trace mg/dL [facility] Urine Ketones Negative Negative mg/dL [facility] Nitrite Urine Negative Negative [facility] Leukocyte Esterase Urine Large (3+)(A) Negative [facility] RBC Urine 0-2 0 - 2 /HPF [facility] Urine WBC 6-10 0 - 5 /HPF [facility] Urine Squamous Epithelial Cell >20 0 - 2 /HPF [facility] Urine Bacteria 4+ None Seen [facility] Hyaline Casts, Urine 3-5 0 - 2 /LPF [facility] 03/17/2025 10:3 8 PM EST 03/17/2025 10:44 PM EST Narrative [facility] - 03/17/2025 11:13 PM EST [id number], Clean Catch Generic External Data Provider LAB URINE ORDERAB LES Final Result Performing Organization Address [facility] Co de Phone Number [facility] [address] [place] [phone] * (ABNORMAL) HCG, Qualitative, Urine (03/17/2025 10:38 PM EST) Urine POSITIVE(A ) NEGATIVE [facility] 03/17/2025 10:3 8 PM EST 03/17/2025 10:44 PM EST Generic External Data Provider LAB URINE ORDERAB LES Final Result Performing Organization Address [facility] de Phone Number [facility] [address] [place] [phone] * hCG, Total, Quantitative (03/06/2025 10:49 AM EST) HCG Quantitative 6,095 mIU/mL [facility] Comment:Weeks post LMP Appro ximate hCG(Last Menstrual Period) Range (mIU/ml)3 - 4 weeks 9 - 1304 - 5 weeks 75 - 2,6005 - 6 weeks 850 - 20,8006 - 7 weeks 4000 - 100,2007 - 12 weeks 11,500 - 289,51173 - 16 weeks 18,300 - 137,86995 - 29 weeks (2nd trimester) 1,400 - 53,18804 - 41 weeks (3rd trimester) 940 - 60,000The Bullock B- hCG assay is used for the early detection ofpregnancy; it cannot be used to diagnose any conditionunrelated to . If a B-hCG level is not supportedby the clinical evidence, results should be confirmed by analternative method (qualitative urine hCG, for example). Blood Venous blood specimen / Unknown 03/06/2025 10:49 AM EST 03/06/2025 2:06 PM EST Emmett Corley DRAWING KILN OPERATOR LAB BLOOD ORDERABLES Gissell l Result Performing Organization Address City/[facility] Co de Phone Number [facility] [address] [place] [phone] * Lipid Panel, Standard (08/05/2023 11:21 AM EDT) Triglycerides 57 <150 mg/dL [facility] Comment:Desirable Triglyceri de: less than 150 mg/dLBorderline High Triglyceride 150-199 mg/dLHigh Triglyceride: 200-499 mg/dLVery High Triglyceride: greater than or equal to 5OO mg/dL Cholesterol 137 <200 mg/dL [facility] Comment:Desirable Cholestero l: less than 200 mg/dLBorderline High Cholesterol: 200-239 mg/dLHigh Cholesterol: greater than 239 mg/dL LDL Cholesterol Calculated 75 <100 mg/dL [facility] Comment:Desirable LDL: less than 100 mg/dLNear Optimal/Above Optimal LDL: 110- 129 mg/dLBorderline High LDL: 130-159 mg/dLHigh LDL: 160-189 mg/dLVery High LDL: greater than or equal to 190 mg/dL HDL Cholesterol 51 >40 mg/dL [facility] Comment:Desirable HDL: great er than 40 mg/dL Note: This HDL assay may give artificially low results in patients with liver disease. Blood Venous blood specimen / Unknown 08/05/2023 11:21 AM EDT 08/05/2023 2:10 PM EDT Tamica Boykin MD LAB BLOOD ORDERABLES Final Resul t Performing Organization Address City/[facility]/ZIP Co de Phone Number [facility] [address] [place] [address] [phone] * Pap Smear (07/07/2023 3:24 PM EST) Swab Cervix uteri structure / Unknown 07/07/2023 3:24 PM EST 07/08/2023 12:30 PM EST Narrative [facility] - 07/20/2023 7:11 AM EDT ----- ------- Name: Maria Elena Harris Age/Sex: 22/F : 2000 Unit#: [id number] Attend Dr: [facility] Re07/07/23 Status: DEP [facility] Disch: ----- ------- SPEC : [id number] RECD: 07/08/23-1230 STATUS: ANABELLE DARYL NUM: [id number] DOMONIQUE: 07/07/23-[address] [facility] [address]: [facility] ENTERED: 07/08/23-1300 SP TYPE: Pap Smr OTHR DR: ORDERED: Pap Smear Interpretation Satisfactory for evaluation. Mild inflammation. Negative for intraepithelial lesion or malignancy. Clinical Information LMP: Unknown date Previous PAP test: Unknown date/findings Material Received ThinPrep-Vaginal/Cervical ----- ------- Signed (signature on file) ANDRE Russo (ASCP) 07/20/23 0711 ----- ------- END OF REPORT Rachel MONTENEGRO LAB CYTOLOGY ORDERABLES F inal Result Performing Organization Address City/[facility]/ZIP Co de Phone Number [facility] [address] [place] [address] [phone] * Hepatitis C Antibody with Reflex to HCV, RNA, Quantitative, Real-Time PCR (03/11/2023 11:43 AM EST) Hepatitis C Antibody Nonreactive Nonreactive [facility] Comment:Antibodies to HCV no t detected; does not exclude early acuteHCV infection. Blood Venous blood specimen / Unknown 03/11/2023 11:43 AM EST 03/11/2023 2:26 PM EST Tamica Boykin MD LAB BLOOD ORDERABLES Final Resul t Performing Organization Address [facility]/ZIP Co de Phone Number [facility] [address] [place] [address] [phone] * HIV 1/2 ANTIGEN/ANTIBODY,FOURTH GENERATION W/RFL (02/14/2021 9:32 AM EDT) HIV-1/2 ANTIGEN AND ANTIBODIES, 4TH GENERATION W/ REFLEX NON-REACT ROC NON-REACT ROC [facility] Comment: HIV-1 antigen and HIV-1/HIV-2 [...] purpose. For additional information please refer to http://education.[employer]/faq/SFH932 (This link is being provided for informational/ educational purposes only.) The performance of this assay has not been clinically validated in patients less than 2 years old. 02/14/2021 9:32 AM EDT us Maria Elena Swift MD LAB BLOOD ORDERABLES Final Re sult [facility] [address] from Last 3 Months or Most Recently Relevant to Health Maintenance [facility] Care Teams Actuarial Mathematician Relationship Specialty Start Date End Date Emmett Corley CNP [address] [place] [address] PCP - General Family Medicine 03/01/25
--- OUTSIDE RECORDS SUMMARY | 2025-04-12 00:38 | XMS_ITS | Clinical Summary ---
Author Organization [facility] [place] [address] Care Team Providers Care Electronic Imager Name Role Phone Unavailable Primary Care Provider Unavailabl e Surgical History Surgery Date Site/Laterality Comments TONSILLECTOMY PROCEDURE: HISTORICAL TONSILLECTOMY; COMMENT: 03-02-12 ADENOIDECTOMY PROCEDURE: HISTORICAL ADENOIDECTOMY; COMMENT: 03-02-12 TYMPANOSTOMY TUBE PLACEMENT PROCEDURE: HISTORICAL PE TUBES; COMMENT: 03-02-12 OTHER SURGICAL HISTORY 07-19-13 PROCEDURE: HISTORICAL EAR SURGERY; COMMENT: left myringoplasty CHOLECYSTECTOMY 02-16 PROCEDURE: LAPAROSCOPY, CHOLECYSTECTOMY Medical History Medical History Date Comments Unspecified asthma(493.90) DX:Un specified asthma(493.90); COMMENT: RAD and cold air Acute suppurative otitis med ia without spontaneous rupture of eardrum DX:Acute suppurative otitis media without spontaneous rupture of eardrum 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 Coyne 04-10- allergy testing neg Eczema DX:Eczema Central auditory processing disorder 2009 DX:Central auditory processi ng disorder; COMMENT: neuropsych testing Environmental allergies 2007 DX:Envir onmental allergies; COMMENT: skin testing + hickory pollen, house dust , dog grass pollen, ragweed and rrabbits Snoring 11-11 DX:Snoring; COMM ENT: ENT- normal polysomnogram 11-11; tonsillectomy 03-02-12 Abdominal pain DX:Abdominal quang n; COMMENT: GI 2007 and 2010: constipation an irritable bowel Rx with bentyl, miralax F/U [address] Parks Hearing loss DX:Hearing loss; COMMENT: right ear sensorineural - ENT to follow annually Fracture of ankle left 03-14 DX:Fracture of ankle; COMMENT: was casted for about 4weeks total Otitis 03/14 DX:Otitis Obesity DX:Obesity Strep pharyngitis 11-12 DX:Strep phary ngitis Depression anxiety DX:Depression; C OMMENT: Zoloft Acanthosis nigricans 12/12/2011 DX:Acanthos is nigricans Left ankle pain 06-14-12 DX:Left ankle pa in; COMMENT: seen at [facility]- normal exam- sent to PT; wt loss recommended; F/U 6 weeks; 11-13: ankle impingment and steroid injection Insomnia DX:Insomnia; COM MENT: trial of clonidine Menarche onset at 12 yo DX:Menarche Perforation of left tympanic membrane 07/24/2013 DX:Perforation of left tympa susan membrane; COMMENT: 07-19-13: left myringoplasty Learning disabilities 01/13/2014 DX:Learnin g disabilities; COMMENT: 01-15: reading and math- since 3rd grade has had IEP ADHD (attention deficit hyperactivity disorder), inattentive type 03/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 Tena at [facility] Generalized anxiety disorder 07/10/2011 DX: Generalized anxiety disorder; COMMENT: 12-17-11: Fluoxetine- [facility] Trazodone 100 mg hs for sleep Info from pedi neuro note dated 02-12-12: biofeedback, therpay, trazodone, prozac 30 mg 12/14: Zoloft 100mg, in home therapy and [facility] behavioral health 2 x a week 01-15: Suzi Shields at [facility]- on Wellbutrin 300mg daily; in therapy at [facility]- [facility] (no in home therapy) Binge eating 03/06/2014 DX:Binge eating Hearing loss 01/30/2011 DX:Hearing loss; COMMENT: right ear sensorineural - ENT to follow annually Tubes bilat with both removed summer-14: mom notes the hearing fluctuates between two ears 9-15: doing well- mom notes is an issue when fluid in ears with allergies -17 no longer an issue- passed screen Language development disorder 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 DX :Language development disorder; COMMENT: Dx language disorder by neuropsych testing 08-15: no therapy since middle school and doing well Cholelithiases 02/28/2016 DX:Cholelithiase s; COMMENT: 02-16- S/P cholecystectomy 02-19-16 Irregular menses 08/13/2016 DX:Irregular me nses; COMMENT: 07-05-16: LH/GSH 2.54; testosterone ordered but not done- seen at ped endo -- did not have copy of labs at visit-wt loss and possible OCP in future to F/U 3 01-18: periods regular Elevated blood-pressure read ing without diagnosis of hypertension 09/09/2016 DX:Elevated blood-pr essure reading without diagnosis of hypertension; COMMENT: bp at nurses office 120-136/80-94. 90% for height 126/81 01-18: today BP normal Family History Medical History Relation Name Comments Asthma Brother 1 Other: Tourettes Brother 2 Heart attack Maternal Grandmother triple by pass - onset of problems in late 50's Hyperlipidemia Maternal Grandmother MGF, PGM, PGF Hypertension Maternal Grandmother mother Stroke Maternal Grandmother Allergies Mother seasonal, broth er Migraines Mother father when you nger Obesity Mother Other: TIA Mother Other: charlene Mother Hypertension Paternal Grandfather Relation Name Status Comments Brother 1 Brother 2 Brother 3 Alive Father Alive Maternal Grandmother Mother Alive Paternal Grandfather Sister Alive Social History Tobacco Use Types Packs/Day Years Used Date Smoking Tobacco: Never Smokeless Tobacco: Never Alcohol Use Standard Drinks/Week Comments No 0 (1 standard drink = 0.6 oz pur e alcohol) Comments Unknown Sex and Gender Information Value Date Recorded Sex Assigned at Not on file Legal Sex Female 8:26 PM EST Gender Identity Not on file Sexual Orientation Not on file Plan of Treatment Health Maintenance Due Date Last Done Comments Gonorrhea/Chlamydia Screening 2000 Cervical Cancer Screening: Pap Smear 2021 DTaP,Tdap,and Td Vaccines (7 - Td or Tdap) 12/15/2022 12/15/2012, 06/24/2005, 02/21/2002, Additional history exists Depression Screening 05/04/2024 COVID-19 Vaccine ( season) 2025 Influenza Vaccine (#1) 2025 RSV Immunization Adult Patients (1 - 1-dose 75+ series) 08/15/2075 Hepatitis B Vaccines Completed 05/17/2001, 2000, 2000 HIB Vaccines Completed 11/22/2001, 02/01, 2000, Additional history exists Varicella Vaccines Completed 02/21/2002, 08/23/2001 MMR Vaccines Completed 06/27/2004, 11/22/2001 Pneumococcal Vaccine: Pediatrics (0 to 5 Years) and At-Risk Patients (6 to 49 Years) Completed 06/27/2004, 08/23/2001, 02/12/2001, Additional history exists IPV Vaccines Completed 06/24/2005, 02/02, 11/22/2001, Additional history exists HPV Vaccines Completed 01/16/2015, 01/02, 12/23/2012 Meningococcal ACWY Vaccine Completed 01/27/2017, Hepatitis A Vaccines Aged Out No long er eligible based on patient's age to complete this topic Meningococcal B Vaccine Aged Out No l onger eligible based on patient's age to complete this topic RSV Immunization Patients Under 20 months Aged Out No longer eligible based on patient's age to complete this topic
--- NOTE | 2025-04-12 03:45 | PC.NURSE ---
reviewed discharge instructions with pt. pt verbalized understanding, no of distress.
[2025-04-12 03:46] VITALS: BP 130/79; PULSE 92; RESP 15; TEMP 36.1; O2SAT 100
== END 2025-04-12 03:46 | disposition home or self-care (01) ==
PROVIDERS: Emergency Provider Emergency Medicine
DX: O26.891 Other specified pregnancy related conditions, first trimester (principal); F41.9 Anxiety disorder, unspecified; Z3A.11 11 weeks gestation of pregnancy
CPT/HCPCS: 93005; 99283; 99285

== ENCOUNTER → 2025-04-11 22:33 | Outpatient (BNV) | payer MEDICAID, SELFPAY | PROVIDERS: Emergency Provider Emergency Medicine; Visit Provider Internal Medicine Cardiovascular Disease | DX: R94.31 Abnormal electrocardiogram [ECG] [EKG] (principal); R07.9 Chest pain, unspecified; R00.2 Palpitations | CPT/HCPCS: 93010 ==